=== PATIENT | male | born 1945 | race Caucasian/White ===

== ENCOUNTER 2021-11-18 13:22 | Inpatient (IN) | payer MEDICAID, SELFPAY ==
[~2021-11-18] VITALS: Ht 137.2 cm; Wt 68.0 kg
[2021-11-18 14:10] VITALS: BP 165/82
--- NOTE | 2021-11-18 15:40 | NUR ---
Sunil torres in [facility] - 11/18/21 at 1548 by [email or web address] PT ASSISTED OFF AMBULANCE GUHECTOR INTO THE RESTROOM FOR URINE SAMPLE.
[2021-11-18] MEDS ORDERED: NACL 0.9% 1,000 ML IV ONE (16:25)
--- NOTE | 2021-11-18 17:05 | NUR ---
Patient wheelchair assisted to bed 4.
[2021-11-18 17:55] LABS: BASOPHILS % (AUTO) 0.2 % (0.0-2.0); EOSINOPHILS % (AUTO) 0.1 % (0.0-4.0); HEMOGLOBIN 15.8 g/dL (12.0-18.0); LYMPHOCYTES # (AUTO) 0.3 K/uL (2.0-11.5); MEAN CORPUSCULAR HEMOGLOBIN 30 pg (27-31); MEAN CORPUSCULAR HGB CONC 34 g/dL (33-37); MEAN CORPUSCULAR VOLUME 88.3 fL (80-94); MONOCYTES # (AUTO) 0.5 K/uL (0.8-1.0); MONOCYTES % (AUTO) 12.4 % (1.7-9.3); NEUTROPHILS # (AUTO) 3.3 K/uL (1.8-7.7); NEUTROPHILS % (AUTO) 79.3 % (42.2-75.2); PLATELET COUNT (AUTO) 234 K/uL (140-450); RED BLOOD CELL COUNT(AUTO) 5.32 MIL/uL (4.20-6.10); RED CELL DISTRIBUTION WIDTH 14.2 % (11.6-13.7); WHITE BLOOD COUNT (AUTO) 4.1 K/uL (4.8-10.8)
[2021-11-18 17:57] LABS: APPEARANCE,URINE CLEAR (CLEAR); BILIRUBIN,URINE 1+ (NEGATIVE); BLOOD, URINE TRACE-I (NEGATIVE); LEUKOCYTE ESTERASE ,URINE NEGATIVE (NEGATIVE); NITRITE, URINE NEGATIVE (NEGATIVE); UGLUCOSE NEGATIVE (NEGATIVE)
[2021-11-18 18:10] LABS: COLOR,URINE AMBER (YELLOW)
[2021-11-18 18:11] LABS: RBC,URINE 0-5 /HPF (0-5); WBC,URINE 0-5 /HPF (0-5)
[2021-11-18 18:19] LABS: ANION GAP 17.6 (8-16); ASPARTATE AMINOTRANSFERASE 59 U/L (15-37); CARBON DIOXIDE 22.3 mmol/L (21-32); CHLORIDE 101 mmol/L (98-107); GLUCOSE 126 mg/dL (74-106); POTASSIUM 3.9 mmol/L (3.5-5.1); SODIUM SERUM 137 mmol/L (136-145); TOTAL BILIRUBIN 0.9 mg/dL (0.0-1.0); UREA NITROGEN, BLOOD 15 mg/dL (7-18)
[2021-11-18] MEDS ORDERED: DEXAMETHASONE 10 MG/ML VIAL IVP ONE (18:20)
--- NOTE | 2021-11-18 19:58 | NUR ---
ENDORSED CARE TO DIRECTOR OF GRADUATE MEDICAL EDUCATION NURSE TARAN.
--- NOTE | 2021-11-18 21:00 | NUR ---
AWAKE, URINAL GIVEN, REQUESTS TO GO TO THE BATHROOM
[2021-11-18] MEDS ORDERED: DOCUSATE SODIUM 100 MG GELCAP PO PRN (22:10)
[2021-11-18] MEDS ORDERED: SODIUM PHOS / POTASSIUM PHOS 1 PKT PDR PO PRN (22:10)
[2021-11-18] MEDS ORDERED: MORPHINE SULFATE 2 MG/ML SYR IVP PRN (22:10)
[2021-11-18] MEDS ORDERED: ONDANSETRON 4 MG/2 ML VIAL IM/IVP PRN (22:10)
[2021-11-18] MEDS ORDERED: MAGNESIUM OXIDE 400 MG TAB PO PRN (22:10)
[2021-11-18] MEDS ORDERED: POTASSIUM CHLORIDE 10 MEQ TABER PO PRN (22:10)
[2021-11-18] MEDS ORDERED: ACETAMINOPHEN 325 MG TAB PO PRN (22:10)
[2021-11-18] MEDS ORDERED: DEXAMETHASONE 4 MG TAB PO SCH (22:10)
[2021-11-18] MEDS ORDERED: ALBUTEROL SULFATE/IPRATROPIU 3 ML SOL IH PRN (22:35)
[2021-11-18 23:25] LABS: PHOSPHORUS 3.6 mg/dL (2.5-4.9)
--- NOTE | 2021-11-19 02:00 | NUR ---
RESTING IN BED WITH EYES CLOSED, RESPIRATIONS REGULAR AND UNLABORED
[2021-11-19] MEDS: NACL 0.9% 1,000 ML IV SCH ×2 (02:45→22:10)
[2021-11-19 03:10] LABS: BASOPHILS # (AUTO) 0.1 K/uL (0.00-0.22); BASOPHILS % (AUTO) 1.8 % (0.0-2.0); EOSINOPHILS % (AUTO) 0.2 % (0.0-4.0); HEMATOCRIT 42.3 % (36-52); HEMOGLOBIN 14.4 g/dL (12.0-18.0); LYMPHOCYTES # (AUTO) 0.2 K/uL (2.0-11.5); LYMPHOCYTES % (AUTO) 6.2 % (20.5-51.1); MEAN CORPUSCULAR HEMOGLOBIN 30 pg (27-31); MEAN CORPUSCULAR HGB CONC 34 g/dL (33-37); MEAN CORPUSCULAR VOLUME 88.3 fL (80-94); MONOCYTES # (AUTO) 0.2 K/uL (0.8-1.0); MONOCYTES % (AUTO) 6.2 % (1.7-9.3); NEUTROPHILS # (AUTO) 2.7 K/uL (1.8-7.7); NEUTROPHILS % (AUTO) 85.6 % (42.2-75.2); PLATELET COUNT (AUTO) 249 K/uL (140-450); RED CELL DISTRIBUTION WIDTH 14.4 % (11.6-13.7); WHITE BLOOD COUNT (AUTO) 3.2 K/uL (4.8-10.8)
[2021-11-19 03:58] LABS: ANION GAP 11.1 (8-16); CHLORIDE 106 mmol/L (98-107); CREATININE 1.1 mg/dL (0.6-1.3); GLUCOSE 197 mg/dL (74-106); POTASSIUM 5.1 mmol/L (3.5-5.1); SODIUM SERUM 138 mmol/L (136-145); UREA NITROGEN, BLOOD 16 mg/dL (7-18)
--- NOTE | 2021-11-19 04:00 | NUR ---
HAS BEEN VOIDING PER URINAL. MORNING LABS HAVE BEEN DRAWN
--- NOTE | 2021-11-19 09:02 | NUR ---
PATIENT HAS BEEN SCREENED AND CATEGORIZED MODERATE NUTRITION RISK. PATIENT WILL BE SEEN WITHIN 3-5 DAYS OF ADMISSION. CEASAR LOPEZ RD
--- NOTE | 2021-11-19 09:33 | NUR ---
Patient will be admitted to care of macho to. Admited to telemetry. Will go to room 117. Belongings list completed. Report to elicia christine.
[2021-11-19 09:45] VITALS: BP 144/62
--- NOTE | 2021-11-19 09:45 | NUR ---
PT TRANSPORTED TO [facility] BED 117. NO S/S OF DISTRESS. CALL LIGHT IN REACH. ALL SAFETY MEASURES IN PLACE. 2L NC. CALL LIGHT IN REACH. ALL SAFETY MEASURES IN PLACE.
[2021-11-19] MEDS: PANTOPRAZOLE 40 MG TABEC PO SCH (09:59)
[2021-11-19] MEDS: ASCORBIC ACID 500 MG TAB PO SCH (09:59)
[2021-11-19] MEDS: ZINC SULF 220 MG CAP PO SCH (09:59)
[2021-11-19] MEDS: VITAMIN D 400 IU TAB PO SCH (09:59)
[2021-11-19] MEDS: DEXAMETHASONE 4 MG TAB PO SCH (09:59)
--- NOTE | 2021-11-19 10:30 | NUR ---
PT IN BED AWAKE, ALERT, VERBAL. ON O2 VIA NC AT 2L. BREATHING SYMMETRICAL. PT C/O CRUSHING CHEST PAIN 06/16, PRN MORPHINE GIVEN. CALL LIGHT PLACED WITHIN EASY REACH. WILL CONTINUE TO MONITOR
--- NOTE | 2021-11-19 11:07 | NUR ---
RT NOTIFIED, PT WOULD LIKE EXTENDED O2 TUBING FOR BATHROOM PRIVILEGES. RT TO PROVIDE
[2021-11-19] MEDS ORDERED: ACETAMINOPHEN 325 MG SUPP RC PRN (11:15)
[2021-11-19] MEDS ORDERED: NITROGLYCERIN 0.4 MG TAB SL PRN (11:15)
--- NOTE | 2021-11-19 11:18 | NUR ---
RE-ASSESSED PT'S PAIN, STILL C/O CRUSHING CHEST PAIN WENT DOWN TO 6/10. DR VIZCARRA MADE AWARE WITH NEW ORDERS MADE.
--- NOTE | 2021-11-19 11:43 | NUR ---
PRN NITRO SL GIVEN FOR C/O CHEST PAIN, WILL CONTINUE TO MONITOR
[2021-11-19 12:00] VITALS: BP 135/77
[2021-11-19] MEDS ORDERED: MORPHINE SULFATE 2 MG/ML SYR IVP SCH (12:00)
--- NOTE | 2021-11-19 13:46 | NUR ---
PT AWAKE, ALERT. AMBULATORY, PERUVIAN SPEAKING. WITH O2 VIA NC AT 4L. BREATHING SYMMETRICAL. ALL SAFETY MEASURES IN PLACE. CALL LIGHT PLACED WITHIN REACH
--- NOTE | 2021-11-19 14:30 | NUR ---
POTENTIAL COVID RELATED SKIN FAILURE DUE TO TISSUE LESS TOLERATE TO PRESSURE, SHEARING AND POSSIBLE ASSOCIATED WITH MICROVASCULAR INJURY AND HYPOXIA CONTINUE TO FOLLOW SKIN CARE AND PRESSURE INJURY PREVENTION INTERVENTIONS. -TURN AND REPOSITION PATIENT Q 2H -ASSESS AND MONITOR SKIN CONDITION DURING POSITION CHANGE -OFFLOAD BILATERAL HEELS BY PLACING PILLOWS UNDER CALVES AT ALL TIMES, UNLESS OTHERWISE CONTRAINDICATED -PRESSURE REDISTRIBUTION SURFACE AND OFFLOADING SACRALCOCCYX -KEEP SKIN CLEAN AND DRY AT ALL TIMES.
[2021-11-19] MEDS ORDERED: MENTHOL/METHYL 10%-15% 114 GM TUBE TP PRN (15:50)
[2021-11-19] MEDS ORDERED: ALBUTEROL SULFATE/IPRATROPIU 3 ML SOL IH ONE (15:50)
--- NOTE | 2021-11-19 15:53 | NUR ---
NOTIFIED DR VIZCARRA ABOUT PT'S CHEST PAIN STILL / DESPITE PHARMACOLOGICAL MEASURES, PT SITTING ON CHAIR, AMBULATORY, NO FACIAL GRIMACING, NO S/SX OF DISTRESS. ORDERED BREATHING TX VIA RT.
[2021-11-19 16:00] VITALS: BP 158/83
--- NOTE | 2021-11-19 16:06 | NUR ---
DC PLANNING: THE PATIENT PRESENTED WITH SOB H/O OF TESTING COVID + RECENTLY. HYPOXIC IN ED, PLACED ON 6L O2 VIA OXYMIZER. CXR SHOWED PATCHY OPACITIES, PATIENT STARTED ON DUONEBS, IVF'S AND DECADRON. ID CONSULT ORDERED, BLOOD CULTURES IN PROCESS. CM SPOKE WITH THE PATIENTS SON IN LAW BY PHONE, THE PATIENTS LIVES IN A SINGLE STORY HOUSE WITH HIS DAUGHTER, SON IN LAW AND GRANDCHILDREN. HE'S NORMALLY INDEPENDENT IN ALL ACTIVITIES AND GOES TO A CLINIC IN [place] FOR MEDICAL NEEDS. DISCUSSED HOME O2, IF NEEDED FAMILY CAN PAY OUT OF POCKET IF HIS PRESUMPTIVE M/HECTOR DOESN'T COVER IT. CM WILL FOLLOW FOR NEEDS. Addendum: 11/20/21 at 1050 by Carolyn Loving CM DC PLANNING: [facility], UNCLEAR IS PRESUMPTIVE M/HECTOR WILL COVER, CM WILL FOLLOW UP. Addendum: 11/20/21 at 1625 by Carolyn Loving CM DC PLANNING: M/HECTOR CERTIFICATE OF NECESSITY FAXED BACK TO [facility] WITH MD HAYNES ([facility] FAX [phone]) [facility] PHONE [phone]. IF [facility] DOESN'T COVER HOME O2 THE FAMILY IS WILLING TO PAY OUT OF POCKET. CM WILL FOLLOW. Addendum: 11/20/21 at 1636 by Carolyn Loving CM DC PLANNING: PER [facility] O2 WILL BE DELIVERED TO THE HOSPITAL TODAY 6-10 PM. CM WILL FOLLOW.
--- NOTE | 2021-11-19 18:50 | NUR ---
PT IN BED, ALERT, AWAKE. AMBULATORY. ON O2 VIA NC AT 2L. BREATHING SYMMETRICAL. NO C/O PAIN OR DISCOMFORT AT THIS TIME. CALL LIGHT WITHIN REACH. ALL SAFETY MEASURES IN PLACE.
--- NOTE | 2021-11-19 19:45 | NUR ---
RECEIVED BEDSIDE REPORT FROM DAY SHIFT NURSE. PATIENT IS AWAKE, ALERT, AND COOPERATIVE. RESPIRATION EVEN UNLABORED ON 2L NC O2. NO DISTRESS NOTED. SKIN IS WARM AND DRY. IV PATENT AND INTACT. PLAN OF CARE WAS DISCUSSED. ALL SAFETY MEASURES IN PLACE. BED IS AT LOW POSITION. CALL LIGHT WITHIN REACH. WILL CONTINUE TO MONITOR.
[2021-11-19 20:00] VITALS: BP 165/81
--- NOTE | 2021-11-19 20:55 | NUR ---
ALL SCHEDULED MEDS WERE GIVEN PER ORDER. WILL CONTINUE TO MONITOR
--- NOTE | 2021-11-19 21:45 | NUR ---
MADE ROUNDS, PATIENT SATING 84% INCREASED O2 TO 4L NC. PATIENT IS NOW SATING 92%, DENIES ANY DISCOMFORT OR SOB. WILL CONTINUE TO MONITOR
--- NOTE | 2021-11-19 23:08 | NUR ---
SPOKE WITH PATIENT SON-IN LAW DEEJAY CAZARES, REVIEWED WITH THE CURRENT POC AND VERBALIZES UNDERSTANDING. PER DEEJAY HE WANTS TO TALK TO MD. WILL ENDORSED PHONE NUMBER TO MD AND DAY SHIFT NURSE. PHONE NUMBER [phone]
[2021-11-19] MEDS ORDERED: remdesivir COMMUNICATION ORDER 1 EA MISC MC PRN (23:55)
[2021-11-20] VITALS: BP 147/62
--- NOTE | 2021-11-20 00:13 | NUR ---
VITALS WERE TAKEN
--- NOTE | 2021-11-20 02:02 | NUR ---
MADE ROUNDS, PATIENT SLEEPING RESPIRATION EVEN UNLABORED ON 4L NC O2. NO DISTRESS NOTED. WILL CONTINUE TO MONITOR.
--- NOTE | 2021-11-20 03:24 | NUR ---
MADE ROUNDS, PATIENT SLEEPING RESPIRATION EVEN UNLABORED ON 4L NC O2. NO DISTRESS NOTED. WILL CONTINUE TO MONITOR.
[2021-11-20 04:00] VITALS: BP 159/70
--- NOTE | 2021-11-20 04:10 | NUR ---
VITALS WERE TAKEN
--- NOTE | 2021-11-20 05:50 | NUR ---
AM CARE PROVIDED
--- NOTE | 2021-11-20 07:20 | NUR ---
RECEIVED BEDSIDE REPORT FROM FOCUSING MACHINE OPERATOR NURSE . PT IS IN BED. BREATHING IS EVEN AND UNLABORED. NO SS OF DISTRESS AND ON 7L NC OF O2 SATING AROUND 91%. SIDE RAILS UP. BED ON LOW AND LOCKED. CALL LIGHT WITHIN REACH. ALL SAFETY MEASURES IN PLACE. PT IS STABLE.
[2021-11-20 07:25] LABS: BASOPHILS % (AUTO) 0.1 % (0.0-2.0); HEMATOCRIT 42.3 % (36-52); HEMOGLOBIN 14.4 g/dL (12.0-18.0); LYMPHOCYTES # (AUTO) 0.3 K/uL (2.0-11.5); LYMPHOCYTES % (AUTO) 3.2 % (20.5-51.1); MEAN CORPUSCULAR HEMOGLOBIN 30 pg (27-31); MEAN CORPUSCULAR HGB CONC 34 g/dL (33-37); MONOCYTES # (AUTO) 0.8 K/uL (0.8-1.0); MONOCYTES % (AUTO) 8.9 % (1.7-9.3); NEUTROPHILS # (AUTO) 7.8 K/uL (1.8-7.7); NEUTROPHILS % (AUTO) 87.8 % (42.2-75.2); PLATELET COUNT (AUTO) 324 K/uL (140-450); RED BLOOD CELL COUNT(AUTO) 4.86 MIL/uL (4.20-6.10); RED CELL DISTRIBUTION WIDTH 14.1 % (11.6-13.7); WHITE BLOOD COUNT (AUTO) 8.9 K/uL (4.8-10.8)
[2021-11-20 07:55] LABS: ANION GAP 12.4 (8-16); CARBON DIOXIDE 24.8 mmol/L (21-32); CHLORIDE 107 mmol/L (98-107); GLUCOSE 165 mg/dL (74-106); POTASSIUM 4.2 mmol/L (3.5-5.1); SODIUM SERUM 140 mmol/L (136-145); UREA NITROGEN, BLOOD 25 mg/dL (7-18)
[2021-11-20 08:00] VITALS: BP 157/69
[2021-11-20] MEDS: VITAMIN D 400 IU TAB PO SCH (09:32)
[2021-11-20] MEDS: ASCORBIC ACID 500 MG TAB PO SCH (09:32)
[2021-11-20] MEDS: ZINC SULF 220 MG CAP PO SCH (09:32)
[2021-11-20] MEDS: PANTOPRAZOLE 40 MG TABEC PO SCH (09:33)
[2021-11-20] MEDS: DEXAMETHASONE 4 MG TAB PO SCH (09:34)
--- NOTE | 2021-11-20 09:45 | NUR ---
PLACED PATIENT ON ROOM AIR FOR OXYGEN CHECK FOR POSSIBLE OXYGEN USE AT HOME. SHORTLY AFTER PLACING PATIENT ON ROOM AIR PATIENT DE'SATED TO 85%. PATIENT PLACED BACK ON OXYGEN WITH NASAL CANNULA. PATIENT EATING BREAKFAST TRAY AND NEEDED 6 LITERS TO MAINTAIN OXYGENATION AT 95%. NO DISTRESS NOTED.
[2021-11-20] MEDS ORDERED: remdesivir CLINICAL MONITORING 1 EA MISC MC PRN (09:55)
[2021-11-20 12:00] VITALS: BP 154/70
[2021-11-20] MEDS ORDERED: REMDESIVIR. 200 MG in NACL 0.9% 100 ML IV SCH (12:00)
--- NOTE | 2021-11-20 12:00 | NUR ---
STARTED ON 1ST DOSE OF REMDESIVIR, PT SHOWS NO SIGN OF ALLERGY. PT IS IN BED. BREATHING IS EVEN AND UNLABORED. NO SS OF DISTRESS AND ON 6L02 NC SATING AT 94%. SIDE RAILS UP. BED ON LOW AND LOCKED. CALL LIGHT WITHIN REACH. ALL SAFETY MEASURES IN PLACE. PT IS STABLE.
[2021-11-20 16:00] VITALS: BP 153/71
--- NOTE | 2021-11-20 16:00 | NUR ---
PT IS IN BED. BREATHING IS EVEN AND UNLABORED. NO SS OF DISTRESS AND ON 02 NC 6L SATING 94%. SIDE RAILS UP. BED ON LOW AND LOCKED. CALL LIGHT WITHIN REACH. ALL SAFETY MEASURES IN PLACE. PT IS STABLE.
--- NOTE | 2021-11-20 19:20 | NUR ---
ENDORSED TO REGISTER CLERK NURSE FOR CONTINUITY OF CARE.
[2021-11-20 20:00] VITALS: BP 142/72
--- NOTE | 2021-11-20 20:00 | NUR ---
Patient was received from AM shift. Patient is AA&O4 able to make needs known. Patient denies chest pain or SOB. Chest rise is even and unlabored. Normal hear sounds are present and patient is on tele monitoring. Active bowel sounds x4 on auscultation, no abd tenderness or distention were noted. Patient has call light within reach, bed is locked, in the lowest position with bed rails up for safety. Will continue to monitor throughout the shift.
[2021-11-20] MEDS: NACL 0.9% 1,000 ML IV SCH (20:43)
[2021-11-20] MEDS: HYDROcodone/APAP 5/325 MG 1 TAB TAB PO PRN (22:05)
[2021-11-21] VITALS: BP 152/78
--- NOTE | 2021-11-21 01:03 | NUR ---
Rounds: Patient is currently sleeping no s/s of distress at this time. All evening medications have been administered. Will continue to monitor throughout the shift.
[2021-11-21 04:00] VITALS: BP 156/72
--- NOTE | 2021-11-21 07:35 | NUR ---
RECEIVED BEDSIDE REPORT FROM DAY SHIFT NURSE. PATIENT IS AWAKE, ALERT, AND COOPERATIVE. RESPIRATION EVEN UNLABORED ON 7L NC O2. NO DISTRESS NOTED. SKIN IS WARM AND DRY. IV PATENT AND INTACT. PLAN OF CARE WAS DISCUSSED. ALL SAFETY MEASURES IN PLACE. BED IS AT LOW POSITION. CALL LIGHT WITHIN REACH. WILL CONTINUE TO MONITOR.
--- NOTE | 2021-11-21 07:37 | NUR ---
Patient is in bed sleeping no s/s of distress is noted at this time. All current needs have been met. Patient is able to verbalize needs and has call light within reach. Bed is locked in the lowest position with bed rails up. Will differ further care to AM shift for continuity of care.
[2021-11-21] MEDS ORDERED: VITD400 PO (07:44)
[2021-11-21] MEDS ORDERED: DEC4 PO (07:44)
[2021-11-21] MEDS ORDERED: VITC500 PO (07:44)
[2021-11-21] MEDS ORDERED: ZINC220C29 PO (07:44)
[2021-11-21 08:00] VITALS: BP 153/74
[2021-11-21 08:21] LABS: BASOPHILS % (AUTO) 0.3 % (0.0-2.0); HEMATOCRIT 41.4 % (36-52); HEMOGLOBIN 14.2 g/dL (12.0-18.0); LYMPHOCYTES # (AUTO) 0.4 K/uL (2.0-11.5); LYMPHOCYTES % (AUTO) 3.9 % (20.5-51.1); MEAN CORPUSCULAR HEMOGLOBIN 30 pg (27-31); MEAN CORPUSCULAR HGB CONC 34 g/dL (33-37); MEAN CORPUSCULAR VOLUME 87.3 fL (80-94); MONOCYTES # (AUTO) 0.8 K/uL (0.8-1.0); MONOCYTES % (AUTO) 8.4 % (1.7-9.3); NEUTROPHILS # (AUTO) 8.4 K/uL (1.8-7.7); NEUTROPHILS % (AUTO) 87.4 % (42.2-75.2); PLATELET COUNT (AUTO) 307 K/uL (140-450); RED BLOOD CELL COUNT(AUTO) 4.74 MIL/uL (4.20-6.10); RED CELL DISTRIBUTION WIDTH 13.9 % (11.6-13.7); WHITE BLOOD COUNT (AUTO) 9.6 K/uL (4.8-10.8)
[2021-11-21] MEDS: ZINC SULF 220 MG CAP PO SCH (09:37)
[2021-11-21] MEDS: VITAMIN D 400 IU TAB PO SCH (09:37)
[2021-11-21] MEDS: PANTOPRAZOLE 40 MG TABEC PO SCH (09:37)
[2021-11-21] MEDS: DEXAMETHASONE 4 MG TAB PO SCH (09:37)
[2021-11-21] MEDS: ASCORBIC ACID 500 MG TAB PO SCH (09:37)
--- NOTE | 2021-11-21 09:45 | NUR ---
ALL SCHEDULED MEDS GIVEN. PT IS STABLE. NO DISTRESS NOTED. WILL CONTINUE TO MONITOR
[2021-11-21 11:33] LABS: ALBUMIN 2.5 g/dL (3.4-5.0); ANION GAP 15.9 (8-16); ASPARTATE AMINOTRANSFERASE 36 U/L (15-37); CHLORIDE 107 mmol/L (98-107); CREATININE 0.9 mg/dL (0.6-1.3); GLUCOSE 120 mg/dL (74-106); POTASSIUM 3.9 mmol/L (3.5-5.1); SODIUM SERUM 142 mmol/L (136-145); TOTAL BILIRUBIN 0.5 mg/dL (0.0-1.0); UREA NITROGEN, BLOOD 23 mg/dL (7-18)
[2021-11-21 12:00] VITALS: BP 147/62
[2021-11-21] MEDS: REMDESIVIR. 100 MG in NACL 0.9% 100 ML IV SCH (12:57)
--- NOTE | 2021-11-21 13:20 | NUR ---
PATIENT O2 SATURATION TITRATED TO 9L. O2 SATURATION WAS AT 86%. NOW AT 94% O2 SATURATION
--- NOTE | 2021-11-21 13:56 | NUR ---
(11/21/21) RD INITIAL ASSESSMENT COMPLETED PLEASE REFER TO NUTRITION ASSESSMENT UNDER CARE ACTIVITY FOR ESTIMATED NUTRITIONAL NEEDS. RD RECOMMENDATIONS: 1. CONTINUE CARDIAC DIET TOLERATED. 2. CONSULT RDN PRN. 3. RD WILL F/U 3-5 DAYS; MODERATE RISK. OLIIVA CARRERA MS, RDN
--- NOTE | 2021-11-21 15:45 | NUR ---
TITRATED DOWN 5L NC SINCE O2 SATURATION WAS AT 97%
[2021-11-21 16:00] VITALS: BP 156/68
--- NOTE | 2021-11-21 16:45 | NUR ---
TITRATED BACK TO 9L O2 SATURATION WAS AT 77%. NOW AT 91%
--- NOTE | 2021-11-21 19:40 | NUR ---
ENDORSED TO MANAGER TRANSFUSION NURSE FOR CONTINUITY OF CARE. PT IS STABLE.
--- NOTE | 2021-11-21 19:42 | NUR ---
RECEIVED REPORT FROM AM NURSE FOR CONTINUITY OF CARE. PT IS STABLE.
[2021-11-21 20:00] VITALS: BP 153/74
--- NOTE | 2021-11-21 20:40 | NUR ---
PT RECEIVED HS MEDS. WITHOUT ANY DISTRESS. O2 TURNED DOWN FROM 9L TO 8L O2 SAT REMAINS ABOVE 90%.
[2021-11-21] MEDS: NACL 0.9% 1,000 ML IV SCH (22:00)
--- NOTE | 2021-11-21 22:30 | NUR ---
PT SITTING UP IN CHAIR, COMPLAINED OF 6/10 ABDOMINAL PAIN. NORCO 5/325 GIVEN. REASSESSED PT AT 23:00 PT NOW IN BED STATED PAIN IS GONE. ALL SAFETY MEASURES IN PLACE.
[2021-11-22] VITALS: BP 145/62
--- NOTE | 2021-11-22 02:15 | NUR ---
O2 DECREASED TO 7L. PT SLEEPING NO ACUTE DISTRESS. O2 SAT REMAINS ABOVE 90%
[2021-11-22 04:00] VITALS: BP 156/68
--- NOTE | 2021-11-22 04:20 | NUR ---
O2 DECREASED TO 6L NO C/O SOB. ALL NEEDS MET. ALL SAFETY MEASURES IN PLACE.
--- NOTE | 2021-11-22 06:16 | NUR ---
FREQ ROUNDS. PT SLEPT WELL .NO C/O PAIN. REMAINS AFIB ON TELEMETRY HEART RATE AT 83 BPM. ALL NEEDS MET. WILL CONTINUE TO OBSERVE.
[2021-11-22 07:00] LABS: HEMATOCRIT 41.2 % (36-52); HEMOGLOBIN 14.3 g/dL (12.0-18.0); MEAN CORPUSCULAR HEMOGLOBIN 30 pg (27-31); MEAN CORPUSCULAR HGB CONC 35 g/dL (33-37); MEAN CORPUSCULAR VOLUME 86.4 fL (80-94); PLATELET COUNT (AUTO) 298 K/uL (140-450); RED BLOOD CELL COUNT(AUTO) 4.77 MIL/uL (4.20-6.10); WHITE BLOOD COUNT (AUTO) 7.7 K/uL (4.8-10.8)
--- NOTE | 2021-11-22 07:15 | NUR ---
ENDORSED REPORT TO DAY NURSE FOR CONTINUITY OF CARE.
--- NOTE | 2021-11-22 07:30 | NUR ---
ENDORSED REPORT TO AM NURSE FOR CONTINUITY OF CARE.
--- NOTE | 2021-11-22 07:35 | NUR ---
RECEIVED BEDSIDE REPORT FROM DAY SHIFT NURSE. PATIENT IS AWAKE, ALERT, AND COOPERATIVE. RESPIRATION EVEN UNLABORED ON 6L NC O2. NO DISTRESS NOTED. SKIN IS WARM AND DRY. IV PATENT AND INTACT. PLAN OF CARE WAS DISCUSSED. ALL SAFETY MEASURES IN PLACE. BED IS AT LOW POSITION. CALL LIGHT WITHIN REACH. WILL CONTINUE TO MONITOR.
[2021-11-22 07:41] LABS: ALBUMIN 2.3 g/dL (3.4-5.0); ANION GAP 13.1 (8-16); ASPARTATE AMINOTRANSFERASE 26 U/L (15-37); CARBON DIOXIDE 24.5 mmol/L (21-32); CHLORIDE 101 mmol/L (98-107); CREATININE 0.9 mg/dL (0.6-1.3); GLUCOSE 135 mg/dL (74-106); POTASSIUM 3.6 mmol/L (3.5-5.1); SODIUM SERUM 135 mmol/L (136-145); TOTAL BILIRUBIN 0.7 mg/dL (0.0-1.0)
[2021-11-22 07:49] LABS: BASOPHILS % (MANUAL) 0 % (0-2); EOSINOPHILS % (MANUAL) 0 % (0-4); LYMPHOCYTES % (MANUAL) 14 % (20-46); MONOCYTES % (MANUAL) 6 % (5-12)
[2021-11-22 08:00] VITALS: BP 151/75
[2021-11-22] MEDS: VITAMIN D 400 IU TAB PO SCH (09:45)
[2021-11-22] MEDS: ASCORBIC ACID 500 MG TAB PO SCH (09:45)
[2021-11-22] MEDS: DEXAMETHASONE 4 MG TAB PO SCH (09:45)
[2021-11-22] MEDS: ZINC SULF 220 MG CAP PO SCH (09:45)
[2021-11-22] MEDS: PANTOPRAZOLE 40 MG TABEC PO SCH (09:45)
--- NOTE | 2021-11-22 10:00 | NUR ---
ALL SCHEDULED MEDS GIVEN. PT IS STABLE. NO DISTRESS NOTED. WILL CONTINUE TO MONITOR.
[2021-11-22 10:15] LABS: UREA NITROGEN, BLOOD 23 mg/dL (7-18)
[2021-11-22 12:00] VITALS: BP 159/69
[2021-11-22] MEDS: REMDESIVIR. 100 MG in NACL 0.9% 100 ML IV SCH (12:31)
--- NOTE | 2021-11-22 13:50 | NUR ---
CHECKED ON PATIENT. PT IS STABLE. NO DISTRESS NOTED. WILL CONTINUE TO MONITOR.
[2021-11-22 16:00] VITALS: BP 133/76
--- NOTE | 2021-11-22 16:10 | NUR ---
TITRATED O2 DOWN TO 5L NC. PATIENT O2 SATURATION WAS AT 96%. CURRENTLY AT 94%
--- NOTE | 2021-11-22 19:20 | NUR ---
RECEIVED REPORT FROM DAY NURSE FOR CONTINUITY OF CARE.
--- NOTE | 2021-11-22 19:26 | NUR ---
ENDORSED TO AFTERNOON NANNY NURSE FOR CONTINUITY OF CARE. PT IS STABLE.
[2021-11-22 20:00] VITALS: BP 142/64
--- NOTE | 2021-11-22 21:52 | NUR ---
PT PRESENTS LAYING IN BED WITH NO SIGNS OF RESPIRATORY DISTRESS SATING 92% ON 6LPM NC. WILL CONTINUE TO MONITOR.
[2021-11-22] MEDS: NACL 0.9% 1,000 ML IV SCH (22:10)
[2021-11-22] MEDS: HYDROcodone/APAP 5/325 MG 1 TAB TAB PO PRN (22:30)
--- NOTE | 2021-11-22 22:30 | NUR ---
C/O CHEST PAIN 02/14 RECEIVED NORCO 5/325 1 TAB. EFFECTIVE. REASSESSED AFTER 30 MINUTES. NO PAIN. PT SLEEPING RR EVEN AND UNLABORED WITH EQUAL CHEST RISE. NAD. ALL SAFETY MEASURES IN PLACE. CONTINUE TO OBSERVE.
[2021-11-23] VITALS: BP 151/75
--- NOTE | 2021-11-23 01:35 | NUR ---
IV LEAKING.NEW 22G IV INSERTED INTO TRINO. .FLUSHED AND PATENT. IVF NS @ 40CC/HR CONTINUES. WITH ABXS. ALL NEEDS MET. ALL SAFETY MEASURES IN PLACE. CONTINUE TO OBSERVE.
[2021-11-23 04:00] VITALS: BP 142/64
--- NOTE | 2021-11-23 07:30 | NUR ---
RECEIVED PT CARE AND REPORT FROM [facility] NURSE. PATIENT IS SITTING AT BEDSIDE, EATING BREAKFAST. PT APPEARS CALM WITH NO S/S OF DISTRESS OR DISCOMFORT. PATIENT DENIES ANY PAIN OR SOB. IV SITE INTACT WITHOUT REDNESS OR PAIN. CALL LIGHT WITHIN REACH. ALL NEEDS HAVE BEEN MET AT THIS TIME.
[2021-11-23 07:43] LABS: BASOPHILS % (AUTO) 0.2 % (0.0-2.0); EOSINOPHILS % (AUTO) 0.1 % (0.0-4.0); HEMATOCRIT 40.8 % (36-52); LYMPHOCYTES # (AUTO) 0.4 K/uL (2.0-11.5); LYMPHOCYTES % (AUTO) 3.9 % (20.5-51.1); MEAN CORPUSCULAR HEMOGLOBIN 30 pg (27-31); MEAN CORPUSCULAR HGB CONC 34 g/dL (33-37); MEAN CORPUSCULAR VOLUME 86.1 fL (80-94); MONOCYTES # (AUTO) 0.7 K/uL (0.8-1.0); MONOCYTES % (AUTO) 5.8 % (1.7-9.3); NEUTROPHILS # (AUTO) 10.1 K/uL (1.8-7.7); PLATELET COUNT (AUTO) 307 K/uL (140-450); RED BLOOD CELL COUNT(AUTO) 4.73 MIL/uL (4.20-6.10); RED CELL DISTRIBUTION WIDTH 14.1 % (11.6-13.7); WHITE BLOOD COUNT (AUTO) 11.2 K/uL (4.8-10.8)
[2021-11-23 08:00] VITALS: BP 150/67
[2021-11-23 08:03] LABS: ALBUMIN 2.2 g/dL (3.4-5.0); ANION GAP 14.2 (8-16); ASPARTATE AMINOTRANSFERASE 27 U/L (15-37); CARBON DIOXIDE 24.9 mmol/L (21-32); CHLORIDE 101 mmol/L (98-107); CREATININE 0.9 mg/dL (0.6-1.3); GLUCOSE 164 mg/dL (74-106); POTASSIUM 4.1 mmol/L (3.5-5.1); SODIUM SERUM 136 mmol/L (136-145); TOTAL BILIRUBIN 0.5 mg/dL (0.0-1.0); UREA NITROGEN, BLOOD 20 mg/dL (7-18)
[2021-11-23] MEDS: ZINC SULF 220 MG CAP PO SCH (08:57)
[2021-11-23] MEDS: VITAMIN D 400 IU TAB PO SCH (08:57)
[2021-11-23] MEDS: DEXAMETHASONE 4 MG TAB PO SCH (08:58)
[2021-11-23] MEDS: PANTOPRAZOLE 40 MG TABEC PO SCH (08:59)
[2021-11-23] MEDS: ASCORBIC ACID 500 MG TAB PO SCH (08:59)
[2021-11-23] MEDS ORDERED: CRUSHER, PILL MC ONE (09:02)
[2021-11-23 12:00] VITALS: BP 143/80
[2021-11-23] MEDS ORDERED: ASPI-1205 PO (12:01)
[2021-11-23] MEDS ORDERED: CEPH-588 PO (12:04)
[2021-11-23] MEDS: REMDESIVIR. 100 MG in NACL 0.9% 100 ML IV SCH (12:11)
[2021-11-23 15:22] VITALS: BP 137/67
[2021-11-23 16:00] VITALS: BP 143/78
--- NOTE | 2021-11-23 16:19 | NUR ---
PHYSICAL THERAPY CO-SIGN The Physical Therapy Progress Notes documented by Correctional Case Records Supervisor have been reviewed. Reviewed/Co-Signed by: Radha Olson Documentation Done by: MACKENZIE BEATTY PTA Addendum: 11/23/21 at 1619 by Radha Olson PT Amended: Links added.
== END 2021-11-23 18:00 | disposition home or self-care (01) | DRG 720 ==
LOC: MED 13:22 → MTU 20:59
PROVIDERS: ADMIT Hospitalist; ATTEND Hospitalist
PROC: XW033E5 Introduction of Remdesivir Anti-infective into Peripheral Vein, Percutaneous Approach, New Technology Group 5 (ICD-10-PCS; principal; 2021-11-20)
DX: A41.9 Sepsis, unspecified organism (principal); J96.01 Acute respiratory failure with hypoxia; J12.82 Pneumonia due to coronavirus disease 2019; E43 Unspecified severe protein-calorie malnutrition; U07.1 COVID-19; E86.0 Dehydration; E87.1 Hypo-osmolality and hyponatremia; E83.51 Hypocalcemia; R74.01 Elevation of levels of liver transaminase levels; Z68.36 Body mass index [BMI] 36.0-36.9, adult
CPT/HCPCS: 36415; 71045; 80048; 80053; 81001; 83605; 83735; 83880; 84100; 84484; 85025; 85379; 85730; 86140; 87040; 87081; 93005; 96361; 96374; 97112; 97116; 97163-GP; 97530; 99291; J1100; J1644; J2270; U0003

== ENCOUNTER 2022-06-19 09:52 | Inpatient (IN) | payer MEDICAID ==
[~2022-06-19] VITALS: Ht 167.6 cm; Wt 70.8 kg
[~2022-06-19 09:52] MED LIST: ASPI-1856 PO; ATOR20TA40 PO; DOCU-299 PO; LISI5TAB24 PO; METO25TA PO; PANT40EC56 PO
[2022-06-19 09:57] VITALS: BP 134/56
[2022-06-19 11:43] LABS: BASOPHILS % (AUTO) 0.5 % (0.0-2.0); EOSINOPHILS # (AUTO) 0.1 K/uL (0-0.4); EOSINOPHILS % (AUTO) 2.4 % (0.0-4.0); HEMATOCRIT 41.3 % (36-52); HEMOGLOBIN 13.7 g/dL (12.0-18.0); LYMPHOCYTES % (AUTO) 19.5 % (20.5-51.1); MEAN CORPUSCULAR HEMOGLOBIN 30 pg (27-31); MEAN CORPUSCULAR HGB CONC 33 g/dL (33-37); MEAN CORPUSCULAR VOLUME 89.6 fL (80-94); MONOCYTES # (AUTO) 0.4 K/uL (0.8-1.0); MONOCYTES % (AUTO) 7.8 % (1.7-9.3); NEUTROPHILS # (AUTO) 3.6 K/uL (1.8-7.7); NEUTROPHILS % (AUTO) 69.8 % (42.2-75.2); PLATELET COUNT (AUTO) 161 K/uL (140-450); RED BLOOD CELL COUNT(AUTO) 4.62 MIL/uL (4.20-6.10); RED CELL DISTRIBUTION WIDTH 15.5 % (11.6-13.7); WHITE BLOOD COUNT (AUTO) 5.1 K/uL (4.8-10.8)
[2022-06-19 12:01] LABS: ALBUMIN 3.5 g/dL (3.4-5.0); ANION GAP 12.2 (8-16); ASPARTATE AMINOTRANSFERASE 20 U/L (15-37); CARBON DIOXIDE 25.7 mmol/L (21-32); CHLORIDE 108 mmol/L (98-107); CREATININE 1.2 mg/dL (0.6-1.3); GLUCOSE 123 mg/dL (74-106); POTASSIUM 3.9 mmol/L (3.5-5.1); SODIUM SERUM 142 mmol/L (136-145); TOTAL BILIRUBIN 0.6 mg/dL (0.0-1.0); UREA NITROGEN, BLOOD 15 mg/dL (7-18)
[2022-06-19] MEDS ORDERED: ASPIRIN 81 MG TAB.CHEW PO ONE (12:45)
[2022-06-19] MEDS ORDERED: guaiFENesin DM 200/20 MG-10 ML 10 ML UDC PO PRN (14:20)
[2022-06-19] MEDS ORDERED: ZOLPIDEM 5 MG TAB PO PRN (14:20)
[2022-06-19] MEDS ORDERED: HYDROcodone/APAP 7.5/325 MG 1 TAB PO PRN (14:20)
[2022-06-19] MEDS ORDERED: DOCUSATE SODIUM 100 MG GELCAP PO PRN ×2 (14:20→14:25)
[2022-06-19] MEDS ORDERED: ACETAMINOPHEN 325 MG TAB PO PRN (14:20)
[2022-06-19] MEDS ORDERED: ONDANSETRON 4 MG/2 ML VIAL IM/IVP PRN (14:20)
[2022-06-19] MEDS ORDERED: POTASSIUM CHLORIDE 10 MEQ TABER PO PRN (14:20)
[2022-06-19] MEDS ORDERED: NITROGLYCERIN 0.4 MG TAB SL PRN (14:25)
[2022-06-19] MEDS: NACL 0.9% 1,000 ML IV SCH (14:44)
[2022-06-19 14:45] LABS: PROTHROMBIN TIME 10.3 secs (10.8-13.4)
[2022-06-19 14:54] LABS: CHOL/HDL RATIO 4.5 (1-4.5); FREE T4 (FREE THYROXINE) 0.63 ng/dL (0.76-1.46); PHOSPHORUS 3.4 mg/dL (2.5-4.9); THYROID STIMULATING HORMONE 1.34 uIU/mL (0.34-3.74)
[2022-06-19] MEDS ORDERED: CRUSHER, PILL MC ONE (17:37)
[2022-06-19] MEDS: ATORVASTATIN 20 MG TAB PO SCH (17:39)
[2022-06-19 20:40] VITALS: BP 117/57
[2022-06-19] MEDS: METOPROLOL 25 MG TAB PO SCH (21:00)
[2022-06-20] VITALS: BP 143/59
[2022-06-20 01:38] LABS: APPEARANCE,URINE CLEAR (CLEAR); BILIRUBIN,URINE NEGATIVE (NEGATIVE); BLOOD, URINE NEGATIVE (NEGATIVE); COLOR,URINE YELLOW (YELLOW); LEUKOCYTE ESTERASE ,URINE NEGATIVE (NEGATIVE); NITRITE, URINE NEGATIVE (NEGATIVE); PH,URINE 5.5 (5.0-9.0); UGLUCOSE NEGATIVE (NEGATIVE)
[2022-06-20 02:26] LABS: BARBITURATE, URINE NEGATIVE ng/ml (NEG <=200); BENZODIAZEPINE, URINE NEGATIVE ng/mL (NEG <=200); CANNABINOID, URINE NEGATIVE ng/mL (NEG <=50); COCAINE, URINE NEGATIVE ng/mL (NEG <=300); OPIATE, URINE NEGATIVE ng/mL (NEG <=2000); PHENCYCLIDINE SCREEN,URINE NEGATIVE ng/mL (NEG <=25)
[2022-06-20] MEDS: NACL 0.9% 1,000 ML IV SCH ×2 (02:27→20:40)
[2022-06-20 04:00] VITALS: BP 140/61
[2022-06-20 06:49] LABS: BASOPHILS % (AUTO) 0.6 % (0.0-2.0); EOSINOPHILS # (AUTO) 0.2 K/uL (0-0.4); HEMATOCRIT 40.5 % (36-52); HEMOGLOBIN 13.8 g/dL (12.0-18.0); LYMPHOCYTES # (AUTO) 1.3 K/uL (2.0-11.5); LYMPHOCYTES % (AUTO) 24.8 % (20.5-51.1); MEAN CORPUSCULAR HEMOGLOBIN 30 pg (27-31); MEAN CORPUSCULAR HGB CONC 34 g/dL (33-37); MEAN CORPUSCULAR VOLUME 88.2 fL (80-94); MONOCYTES # (AUTO) 0.5 K/uL (0.8-1.0); MONOCYTES % (AUTO) 9.4 % (1.7-9.3); NEUTROPHILS # (AUTO) 3.3 K/uL (1.8-7.7); NEUTROPHILS % (AUTO) 62.2 % (42.2-75.2); PLATELET COUNT (AUTO) 151 K/uL (140-450); RED CELL DISTRIBUTION WIDTH 15.3 % (11.6-13.7); WHITE BLOOD COUNT (AUTO) 5.2 K/uL (4.8-10.8)
[2022-06-20 07:19] LABS: ANION GAP 11.4 (8-16); CARBON DIOXIDE 25.5 mmol/L (21-32); CHLORIDE 107 mmol/L (98-107); CREATININE 1.1 mg/dL (0.6-1.3); GLUCOSE 102 mg/dL (74-106); POTASSIUM 3.9 mmol/L (3.5-5.1); SODIUM SERUM 140 mmol/L (136-145); UREA NITROGEN, BLOOD 13 mg/dL (7-18)
[2022-06-20 08:00] VITALS: BP 130/50
[2022-06-20 08:07] LABS: T4 (THYROXINE) 4.5 ug/dL (4.5-12.0)
[2022-06-20] MEDS: METOPROLOL 25 MG TAB PO SCH (08:46)
[2022-06-20] MEDS: ECOTRIN 81 MG TABEC PO SCH (08:47)
[2022-06-20] MEDS: PANTOPRAZOLE 40 MG TABEC PO SCH (08:47)
[2022-06-20] MEDS ORDERED: lisinopriL 5 MG TAB PO SCH (09:00)
[2022-06-20 12:00] VITALS: BP 142/50
[2022-06-20] MEDS: NIACIN 500 MG TAB PO SCH ×2 (12:36→21:19)
[2022-06-20 16:00] VITALS: BP 118/35
[2022-06-20] MEDS: ATORVASTATIN 20 MG TAB PO SCH (17:22)
[2022-06-20] MEDS ORDERED: MORPHINE SULFATE 2 MG/ML SYR IVP PRN (17:45)
[2022-06-20 20:00] VITALS: BP 118/80
[2022-06-21] VITALS: BP 118/50
[2022-06-21 04:00] VITALS: BP 120/51
[2022-06-21 07:00] LABS: BASOPHILS % (AUTO) 0.5 % (0.0-2.0); EOSINOPHILS # (AUTO) 0.2 K/uL (0-0.4); EOSINOPHILS % (AUTO) 2.9 % (0.0-4.0); HEMATOCRIT 39.7 % (36-52); HEMOGLOBIN 13.6 g/dL (12.0-18.0); LYMPHOCYTES # (AUTO) 1.3 K/uL (2.0-11.5); LYMPHOCYTES % (AUTO) 23.8 % (20.5-51.1); MEAN CORPUSCULAR HEMOGLOBIN 30 pg (27-31); MEAN CORPUSCULAR HGB CONC 34 g/dL (33-37); MEAN CORPUSCULAR VOLUME 87.1 fL (80-94); MONOCYTES # (AUTO) 0.5 K/uL (0.8-1.0); MONOCYTES % (AUTO) 9.8 % (1.7-9.3); NEUTROPHILS # (AUTO) 3.4 K/uL (1.8-7.7); PLATELET COUNT (AUTO) 149 K/uL (140-450); RED BLOOD CELL COUNT(AUTO) 4.56 MIL/uL (4.20-6.10); RED CELL DISTRIBUTION WIDTH 15.4 % (11.6-13.7); WHITE BLOOD COUNT (AUTO) 5.5 K/uL (4.8-10.8)
[2022-06-21 07:12] LABS: ANION GAP 11.2 (8-16); CARBON DIOXIDE 26.6 mmol/L (21-32); CHLORIDE 106 mmol/L (98-107); CREATININE 1.1 mg/dL (0.6-1.3); GLUCOSE 106 mg/dL (74-106); POTASSIUM 3.8 mmol/L (3.5-5.1); SODIUM SERUM 140 mmol/L (136-145); UREA NITROGEN, BLOOD 14 mg/dL (7-18)
[2022-06-21 08:00] VITALS: BP 138/62
[2022-06-21] MEDS ORDERED: lisinopriL 10 MG TAB PO SCH (09:00)
[2022-06-21] MEDS: NIACIN 500 MG TAB PO SCH (09:05)
[2022-06-21] MEDS: PANTOPRAZOLE 40 MG TABEC PO SCH (09:06)
[2022-06-21] MEDS: ECOTRIN 81 MG TABEC PO SCH (09:06)
[2022-06-21] MEDS ORDERED: LISI10TA30 PO (11:14)
[2022-06-21 14:11] VITALS: BP 130/71
== END 2022-06-21 17:50 | disposition home or self-care (01) | DRG 52 ==
LOC: MED 09:52 → MTU 13:45
PROVIDERS: ADMIT Family Medicine; ATTEND Family Medicine
DX: G93.41 Metabolic encephalopathy (principal); I11.0 Hypertensive heart disease with heart failure; I50.9 Heart failure, unspecified; E78.1 Pure hyperglyceridemia; E86.0 Dehydration; E78.5 Hyperlipidemia, unspecified; Z20.822 Contact with and (suspected) exposure to COVID-19; E78.2 Mixed hyperlipidemia; Z79.82 Long term (current) use of aspirin; Z79.899 Other long term (current) drug therapy; R07.89 Other chest pain
CPT/HCPCS: 36415; 71045; 80048; 80053; 80305; 81003; 82150; 83036; 83690; 83735; 83880; 84100; 84436; 84439; 84443; 84479; 84484; 85025; 85610; 85730; 87081; 93005; 99285; J1644

== ENCOUNTER 2022-12-26 21:52 | Observation (INO) | payer MEDICAID, OTHER ==
[~2022-12-26] VITALS: Ht 167.6 cm; Wt 70.8 kg
[~2022-12-26 21:52] MED LIST changes: -ATOR20TA40 PO; +LISI10TA30 PO; -LISI5TAB24 PO; -METO25TA PO; -PANT40EC56 PO
[2022-12-26 22:03] VITALS: BP 182/84
[2022-12-26] MEDS ORDERED: NITROGLYCERIN 2% 1 GM PKT TP ONE (22:30)
[2022-12-26] MEDS ORDERED: ASPIRIN 325 MG TAB PO ONE (22:30)
--- NOTE | 2022-12-26 22:36 | NUR ---
Patient taken to X-ray via WC.
[2022-12-26 22:55] LABS: BASOPHILS % (AUTO) 0.7 % (0.0-2.0); EOSINOPHILS # (AUTO) 0.2 K/uL (0-0.4); EOSINOPHILS % (AUTO) 2.6 % (0.0-4.0); HEMOGLOBIN 14.6 g/dL (12.0-18.0); LYMPHOCYTES # (AUTO) 1.3 K/uL (2.0-11.5); LYMPHOCYTES % (AUTO) 21.5 % (20.5-51.1); MEAN CORPUSCULAR HEMOGLOBIN 30 pg (27-31); MEAN CORPUSCULAR HGB CONC 34 g/dL (33-37); MEAN CORPUSCULAR VOLUME 88.8 fL (80-94); MONOCYTES # (AUTO) 0.7 K/uL (0.8-1.0); NEUTROPHILS # (AUTO) 3.9 K/uL (1.8-7.7); NEUTROPHILS % (AUTO) 64.2 % (42.2-75.2); PLATELET COUNT (AUTO) 180 K/uL (140-450); RED BLOOD CELL COUNT(AUTO) 4.84 MIL/uL (4.20-6.10); RED CELL DISTRIBUTION WIDTH 14.2 % (11.6-13.7); WHITE BLOOD COUNT (AUTO) 6.1 K/uL (4.8-10.8)
[2022-12-26 23:18] LABS: ANION GAP 11.6 (8-16); ASPARTATE AMINOTRANSFERASE 11 U/L (15-37); CARBON DIOXIDE 29.4 mmol/L (21-32); CHLORIDE 105 mmol/L (98-107); GLUCOSE 116 mg/dL (74-106); SODIUM SERUM 142 mmol/L (136-145); TOTAL BILIRUBIN 0.4 mg/dL (0.0-1.0); UREA NITROGEN, BLOOD 16 mg/dL (7-18)
--- NOTE | 2022-12-27 00:46 | NUR ---
Patient taken to bed 6 with his family.
--- NOTE | 2022-12-27 01:00 | NUR ---
77 Y/O M PRESENTS WITH CHEST PAIN 6/10 WITH PRESSURE RADIATING TO L ARM THAT GOES NUMB PT STATES. PT IS A&OX4, SKIN INTACT. PT DENIES ANY NVD. PMH- NKA
--- NOTE | 2022-12-27 01:27 | NUR ---
Dr. Rajan examining patient.
[2022-12-27] MEDS ORDERED: MORPHINE SULFATE 4 MG/ML SYR IVP ONE (01:35)
--- NOTE | 2022-12-27 01:57 | NUR ---
clinicals given to piotr
--- NOTE | 2022-12-27 03:15 | NUR ---
PT RESTING IN ROOM ON CUTTING TABLE OPERATOR. AWAITING ADMISSION
[2022-12-27] MEDS ORDERED: MAGNESIUM OXIDE 400 MG TAB PO PRN (05:15)
[2022-12-27] MEDS ORDERED: ONDANSETRON 4 MG/2 ML VIAL IVP PRN (05:15)
[2022-12-27] MEDS ORDERED: MORPHINE SULFATE 4 MG/ML SYR IVP PRN (05:15)
[2022-12-27] MEDS ORDERED: POTASSIUM CHLORIDE 10 MEQ TABER PO PRN (05:15)
[2022-12-27] MEDS ORDERED: ACETAMINOPHEN 325 MG TAB PO PRN (05:15)
--- NOTE | 2022-12-27 05:53 | NUR ---
PT AWAITING ADMISSION, IN ROOM ON JUNIOR LINUX ADMINISTRATOR
--- NOTE | 2022-12-27 07:40 | NUR ---
Pt report given to ROOSEVELT SANTAMARIA. Transfer of care at this time.
[2022-12-27] MEDS: NIFEdipine 30 MG TABER PO SCH (09:28)
--- NOTE | 2022-12-27 10:07 | NUR ---
troponin repeat resulted . MD CORRIGAN PAGED
--- NOTE | 2022-12-27 10:12 | NUR ---
MD CORRIGAN updated on pt status/ vitals. " keep pt under observation and possible late discharge".
--- NOTE | 2022-12-27 12:07 | NUR ---
pt provided w/ lunch. pt awake and eating in bed
[2022-12-27] MEDS: HYDROcodone/APAP 5/325 MG 1 TAB TAB PO PRN (14:53)
--- NOTE | 2022-12-27 18:04 | NUR ---
pt provided w/ dinner . pt awake and eating in bed
--- NOTE | 2022-12-27 19:21 | NUR ---
REPORT GIVEN TO OLEGARIO SANTAMARIA. TRANSFER OF CARE AT THIS TIME
--- NOTE | 2022-12-27 19:30 | NUR ---
PT AWAKE SITTING IN CHAIR. PT IS A&OX4. SINHALA SPEAKING ONLY. DENIES PAIN AT THIS PAIN 0/10. PT IS POSSIBLY TO DC TONIGHT. RESP EVEN AND UNLABORED. SKIN WARM AND DRY. GAIT STEADY.
--- NOTE | 2022-12-28 01:04 | NUR ---
PT ASLEEP ON BEDSIDE ROUSTABOUT HAND. PT PENDING DISPO. RESP EVEN AND UNLABORED.
--- NOTE | 2022-12-28 04:52 | NUR ---
PT AWAKE REHABILITATION INSPECTOR AT BEDSIDE. PT DENIES PAIN. RESP EVEN AND UNLABORED. PENDING DISPO
[2022-12-28 05:41] LABS: BASOPHILS % (AUTO) 0.4 % (0.0-2.0); EOSINOPHILS # (AUTO) 0.1 K/uL (0-0.4); EOSINOPHILS % (AUTO) 2.3 % (0.0-4.0); HEMATOCRIT 42.1 % (36-52); HEMOGLOBIN 14.2 g/dL (12.0-18.0); LYMPHOCYTES # (AUTO) 1.1 K/uL (2.0-11.5); LYMPHOCYTES % (AUTO) 17.8 % (20.5-51.1); MEAN CORPUSCULAR HEMOGLOBIN 30 pg (27-31); MEAN CORPUSCULAR HGB CONC 34 g/dL (33-37); MEAN CORPUSCULAR VOLUME 89.2 fL (80-94); MONOCYTES # (AUTO) 0.6 K/uL (0.8-1.0); MONOCYTES % (AUTO) 9.3 % (1.7-9.3); NEUTROPHILS # (AUTO) 4.3 K/uL (1.8-7.7); NEUTROPHILS % (AUTO) 70.2 % (42.2-75.2); PLATELET COUNT (AUTO) 173 K/uL (140-450); RED BLOOD CELL COUNT(AUTO) 4.72 MIL/uL (4.20-6.10); RED CELL DISTRIBUTION WIDTH 14.2 % (11.6-13.7); WHITE BLOOD COUNT (AUTO) 6.1 K/uL (4.8-10.8)
[2022-12-28 06:16] LABS: ANION GAP 11.8 (8-16); CARBON DIOXIDE 28.5 mmol/L (21-32); CHLORIDE 103 mmol/L (98-107); GLUCOSE 113 mg/dL (74-106); POTASSIUM 4.3 mmol/L (3.5-5.1); SODIUM SERUM 139 mmol/L (136-145); UREA NITROGEN, BLOOD 16 mg/dL (7-18)
--- NOTE | 2022-12-28 07:30 | NUR ---
REPORT RECEIVED FROM OLEGARIO SANTAMARIA. ASSUMED CARE AT THIS TIME
--- NOTE | 2022-12-28 07:35 | NUR ---
pt at rest w/ eyes closed .respirations even and unlabored. on phototypesetting equipment monitor. bed at lowest position, bed rails upx2.
[2022-12-28 08:15] VITALS: BP 151/56
--- NOTE | 2022-12-28 08:15 | NUR ---
Patient will be admitted to care of MD CORRIGAN. Admited to TELE. Will go to room 107B. Belongings list completed. Report to YUAN MESSER.
[2022-12-28] MEDS: NIFEdipine 30 MG TABER PO SCH (09:09)
[2022-12-28] MEDS: HYDROcodone/APAP 5/325 MG 1 TAB TAB PO PRN (09:09)
--- NOTE | 2022-12-28 09:41 | NUR ---
PATIENT HAS BEEN SCREENED AND CATEGORIZED LOW NUTRITION RISK. PATIENT WILL BE SEEN WITHIN 7 DAYS OF ADMISSION. 01/03/[address] CEASAR LOPEZ RD
[2022-12-28 12:00] VITALS: BP 137/58
--- NOTE | 2022-12-28 13:05 | NUR ---
RECEIVED REPORT FROM ER NURSE FOR CONTINUITY OF CARE. PT WAS STABLE UPON TRANSPORT AND HAD NO SIGNS OF DISTRESS. PT IS A&OX4, SKIN INTACT, AMBULATES TO AND FROM THE RESTROOM, AND HE SPEAKS NAURUAN. PT HAS A 20G IV IN HIS RAC THAT IS PATENT AND INTACT. PT HAD SOME SLIGHT CHEST DISCOMFORT SO I PROVIDED HIM WITH PAIN MEDICATION. ALL SAFETY MEASURES IN PLACE INCLUDING CALL LIGHT WITHIN REACH AND BED IN LOW POSITION. WILL CONTINUE TO MONITOR.
[2022-12-28 13:35] VITALS: BP 137/58
[2022-12-29] MEDS ORDERED: ASPI-1856 PO (15:08)
[2022-12-29] MEDS ORDERED: LISI10TA30 PO (15:08)
[2022-12-29] MEDS ORDERED: DOCU-299 PO (15:08)
== END 2022-12-28 14:55 | disposition home or self-care (01) ==
LOC: MED 21:52 → MTU 12-27 05:14
PROVIDERS: ADMIT Student in an Organized Health Care Education/Training Program; ATTEND Student in an Organized Health Care Education/Training Program
DX: M94.0 Chondrocostal junction syndrome [Tietze] (principal); Z20.822 Contact with and (suspected) exposure to COVID-19; I20.9 Angina pectoris, unspecified; I10 Essential (primary) hypertension; E78.5 Hyperlipidemia, unspecified; Z79.82 Long term (current) use of aspirin; X50.0XXA Overexertion from strenuous movement or load, initial encounter; Y93.89 Activity, other specified; Y92.89 Other specified places as the place of occurrence of the external cause
CPT/HCPCS: 36415; 71045; 80048; 80053; 83880; 84484; 85025; 85379; 87081; 87426; 93005; 96372; 96374; 99285; G0378; J1644; J2270

== ENCOUNTER 2023-04-19 17:10 | Emergency (ER) | payer OTHER ==
[~2023-04-19] VITALS: Ht 162.6 cm; Wt 75.3 kg
[2023-04-19 17:16] VITALS: BP 136/79
--- NOTE | 2023-04-19 17:32 | NUR ---
ASSUMED PATIENT CARE, NURSING ASSESSMENT COMPLETED.
[2023-04-19] MEDS ORDERED: ASPIRIN 81 MG TAB.CHEW PO ONE (17:45)
[2023-04-19 18:26] LABS: BASOPHILS % (AUTO) 0.6 % (0.0-2.0); EOSINOPHILS # (AUTO) 0.2 K/uL (0-0.4); EOSINOPHILS % (AUTO) 2.9 % (0.0-4.0); HEMATOCRIT 42.8 % (36-52); HEMOGLOBIN 14.6 g/dL (12.0-18.0); LYMPHOCYTES # (AUTO) 1.2 K/uL (2.0-11.5); LYMPHOCYTES % (AUTO) 22.5 % (20.5-51.1); MEAN CORPUSCULAR HEMOGLOBIN 30 pg (27-31); MEAN CORPUSCULAR HGB CONC 34 g/dL (33-37); MEAN CORPUSCULAR VOLUME 87.9 fL (80-94); MONOCYTES # (AUTO) 0.6 K/uL (0.8-1.0); MONOCYTES % (AUTO) 10.5 % (1.7-9.3); NEUTROPHILS # (AUTO) 3.4 K/uL (1.8-7.7); NEUTROPHILS % (AUTO) 63.5 % (42.2-75.2); PLATELET COUNT (AUTO) 153 K/uL (140-450); RED BLOOD CELL COUNT(AUTO) 4.87 MIL/uL (4.20-6.10); RED CELL DISTRIBUTION WIDTH 13.9 % (11.6-13.7); WHITE BLOOD COUNT (AUTO) 5.3 K/uL (4.8-10.8)
[2023-04-19 18:39] VITALS: BP 131/48
[2023-04-19 18:40] LABS: ALBUMIN 3.4 g/dL (3.4-5.0); ANION GAP 11.1 (8-16); ASPARTATE AMINOTRANSFERASE 16 U/L (15-37); CHLORIDE 104 mmol/L (98-107); CREATININE 1.1 mg/dL (0.6-1.3); GLUCOSE 89 mg/dL (74-106); POTASSIUM 4.1 mmol/L (3.5-5.1); SODIUM SERUM 139 mmol/L (136-145); TOTAL BILIRUBIN 0.4 mg/dL (0.0-1.0); UREA NITROGEN, BLOOD 18 mg/dL (7-18)
[2023-04-19] MEDS ORDERED: PRED20TA5 PO (21:05)
[2023-04-19] MEDS ORDERED: OMEP40EC24 PO (21:05)
[2023-04-19] MEDS ORDERED: IBUP-2213 PO (21:05)
[2023-04-19] MEDS ORDERED: AZIT250T4 PO (21:05)
--- NOTE | 2023-04-19 21:18 | NUR ---
Patient discharged with v/s stable. Written and verbal after care instructions given and explained. Patient alert, oriented and verbalized understanding of instructions. Ambulatory with steady gait. All questions addressed prior to discharge. ID band removed. Patient advised to follow up with PMD. Rx of azithromycin, ibuprofen, omeprazole, and prednisone given. Opportunity to ask questions provided and answered. Dr. Barry orders reinforced
== END 2023-04-19 21:18 | disposition home or self-care (01) ==
LOC: MED 17:10
DX: R07.9 Chest pain, unspecified (principal); R05.9 Cough, unspecified; I10 Essential (primary) hypertension; E78.5 Hyperlipidemia, unspecified; Z79.899 Other long term (current) drug therapy; Z98.890 Other specified postprocedural states
CPT/HCPCS: 36415; 71045; 80053; 83880; 84484; 85025; 93005; 99285

== ENCOUNTER 2023-09-26 14:00 | Emergency (ER) | payer OTHER ==
[~2023-09-26] VITALS: Ht 162.6 cm; Wt 59.0 kg
[~2023-09-26 14:00] MED LIST changes: +AZIT250T4 PO; +IBUP-2213 PO; +OMEP40EC24 PO; +PRED20TA5 PO
[2023-09-26 14:37] VITALS: BP 136/73; PULSE 68; RESP 18; TEMP 98; O2SAT 98
[2023-09-26 15:49] LABS: BASOPHILS % (AUTO) 0.3 % (0.0-2.0); EOSINOPHILS # (AUTO) 0.1 K/uL (0-0.4); HEMATOCRIT 45.6 % (36-52); HEMOGLOBIN 15.1 g/dL (12.0-18.0); LYMPHOCYTES % (AUTO) 18.5 % (20.5-51.1); MEAN CORPUSCULAR HEMOGLOBIN 29 pg (27-31); MEAN CORPUSCULAR HGB CONC 33 g/dL (33-37); MEAN CORPUSCULAR VOLUME 88.3 fL (80-94); MONOCYTES # (AUTO) 0.7 K/uL (0.8-1.0); MONOCYTES % (AUTO) 12.7 % (1.7-9.3); NEUTROPHILS # (AUTO) 3.7 K/uL (1.8-7.7); NEUTROPHILS % (AUTO) 66.5 % (42.2-75.2); PLATELET COUNT (AUTO) 152 K/uL (140-450); RED BLOOD CELL COUNT(AUTO) 5.17 MIL/uL (4.20-6.10); RED CELL DISTRIBUTION WIDTH 14.2 % (11.6-13.7); WHITE BLOOD COUNT (AUTO) 5.6 K/uL (4.8-10.8)
[2023-09-26 16:03] LABS: ALANINE AMINOTRANSFERASE 30 U/L (12-78); ALBUMIN 3.8 g/dL (3.4-5.0); ALKALINE PHOSPHATASE 122 U/L (50-136); ANION GAP 11.5 (8-16); ASPARTATE AMINOTRANSFERASE 27 U/L (15-37); CALCIUM 7.8 mg/dL (8.5-10.1); CARBON DIOXIDE 28.8 mmol/L (21-32); CHLORIDE 106 mmol/L (98-107); CREATININE 1.1 mg/dL (0.6-1.3); GLUCOSE 84 mg/dL (74-106); LIPASE 44 U/L (16-77); POTASSIUM 4.3 mmol/L (3.5-5.1); SODIUM SERUM 142 mmol/L (136-145); TOTAL BILIRUBIN 0.4 mg/dL (0.0-1.0); TOTAL PROTEIN, SERUM 7.3 g/dL (6.4-8.2); UREA NITROGEN, BLOOD 17 mg/dL (7-18)
[2023-09-26] MEDS ORDERED: KETOROLAC 60 MG/2 ML VIAL IM ONE (18:40)
[2023-09-26] MEDS ORDERED: HYDR-5080 PO (19:30)
[2023-09-26] MEDS ORDERED: IBUP-2213 PO (19:30)
[2023-09-26 19:48] VITALS: BP 145/62; PULSE 51; RESP 18; O2SAT 95
== END 2023-09-26 19:47 | disposition home or self-care (01) ==
LOC: MED 14:00
DX: R10.30 Lower abdominal pain, unspecified (principal); I10 Essential (primary) hypertension; Z79.899 Other long term (current) drug therapy
CPT/HCPCS: 36415; 74176; 80053; 81002; 83690; 85025; 96372; 99285; J1885

== ENCOUNTER 2024-01-08 10:39 | Emergency (ER) | payer OTHER ==
[~2024-01-08] VITALS: Ht 162.6 cm; Wt 73.3 kg
[~2024-01-08 10:39] MED LIST changes: +HYDR-5080 PO
[2024-01-08 10:56] VITALS: BP 187/84; PULSE 87; RESP 15; TEMP 97.7; O2SAT 97
[2024-01-08 11:29] LABS: BASOPHILS % (AUTO) 0.3 % (0.0-2.0); EOSINOPHILS % (AUTO) 0.3 % (0.0-4.0); HEMATOCRIT 48.4 % (36-52); HEMOGLOBIN 16.8 g/dL (12.0-18.0); LYMPHOCYTES # (AUTO) 0.7 K/uL (2.0-11.5); LYMPHOCYTES % (AUTO) 7.4 % (20.5-51.1); MEAN CORPUSCULAR HEMOGLOBIN 30 pg (27-31); MEAN CORPUSCULAR HGB CONC 35 g/dL (33-37); MEAN CORPUSCULAR VOLUME 87.2 fL (80-94); MONOCYTES # (AUTO) 0.7 K/uL (0.8-1.0); MONOCYTES % (AUTO) 6.7 % (1.7-9.3); NEUTROPHILS # (AUTO) 8.5 K/uL (1.8-7.7); NEUTROPHILS % (AUTO) 85.3 % (42.2-75.2); PLATELET COUNT (AUTO) 175 K/uL (140-450); RED BLOOD CELL COUNT(AUTO) 5.55 MIL/uL (4.20-6.10); RED CELL DISTRIBUTION WIDTH 15.3 % (11.6-13.7)
[2024-01-08 11:36] LABS: APPEARANCE,URINE CLEAR (CLEAR); BILIRUBIN,URINE NEGATIVE (NEGATIVE); BLOOD, URINE 1+ (NEGATIVE); COLOR,URINE YELLOW (YELLOW); LEUKOCYTE ESTERASE ,URINE TRACE (NEGATIVE); NITRITE, URINE NEGATIVE (NEGATIVE); PROTEIN,URINE TRACE (NEGATIVE); UGLUCOSE NEGATIVE (NEGATIVE); UROBILINOGEN,URINE 0.2 EU/dL (0.2 - 1)
[2024-01-08 11:40] LABS: ANION GAP 13.2 (8-16); CARBON DIOXIDE 25.7 mmol/L (21-32); CHLORIDE 103 mmol/L (98-107); GLUCOSE 143 mg/dL (74-106); POTASSIUM 3.9 mmol/L (3.5-5.1); SODIUM SERUM 138 mmol/L (136-145); UREA NITROGEN, BLOOD 15 mg/dL (7-18)
[2024-01-08 11:44] LABS: ALBUMIN 4.1 g/dL (3.4-5.0); BILIRUBIN,DIRECT 0.2 mg/dL (0.0-0.3); TOTAL BILIRUBIN 0.9 mg/dL (0.0-1.0)
[2024-01-08 11:48] LABS: BACTERIA,URINE None Seen /HPF (None Seen); RBC,URINE 0-5 /HPF (0-5); SQUAMOUS EPITHELIAL CELL,UR 0-3 (FEW) /LPF (0-3 (FEW)); WBC,URINE 0-5 /HPF (0-5)
[2024-01-08] MEDS ORDERED: CIPR500T4 PO (12:30)
[2024-01-08] MEDS ORDERED: TAMS0.4C96 PO (12:30)
[2024-01-08 14:21] VITALS: BP 136/65; PULSE 68; RESP 15; TEMP 97.7; O2SAT 97
== END 2024-01-08 14:32 | disposition home or self-care (01) ==
LOC: MED 10:39
DX: R33.9 Retention of urine, unspecified (principal); N40.0 Benign prostatic hyperplasia without lower urinary tract symptoms; I10 Essential (primary) hypertension; Z79.899 Other long term (current) drug therapy; Z79.82 Long term (current) use of aspirin
CPT/HCPCS: 36415; 51702; 80048; 80076; 81001; 83690; 85025; 99284

== ENCOUNTER 2024-01-12 09:19 | Emergency (ER) | payer OTHER ==
[~2024-01-12] VITALS: Ht 162.6 cm; Wt 76.7 kg
[~2024-01-12 09:19] MED LIST changes: +CIPR500T4 PO; +TAMS0.4C96 PO
[2024-01-12 09:23] VITALS: BP 145/74; PULSE 69; RESP 15; TEMP 98.6; O2SAT 97
[2024-01-12 12:38] VITALS: BP 144/67; PULSE 70; TEMP 98.3; O2SAT 96
== END 2024-01-12 12:38 | disposition home or self-care (01) ==
LOC: MED 09:19
DX: Z46.6 Encounter for fitting and adjustment of urinary device (principal); I10 Essential (primary) hypertension; Z79.899 Other long term (current) drug therapy; Z79.82 Long term (current) use of aspirin
CPT/HCPCS: 99284